=== PATIENT | female | born 1960 | race Caucasian/White ===

== ENCOUNTER 2016-08-13 16:51 | Emergency (ER) | payer MEDICARE, MEDICAID, OTHER ==
[~2016-08-13] VITALS: Ht 182.9 cm; Wt 79.5 kg
[~2016-08-13 16:51] MED LIST: ARIP5TAB13 PO; DULO60CA42 PO; ESTR1PAT64 TD; MEDR2.5T PO; OXYC1CAP21 PO
[2016-08-13 17:06] VITALS: BP 140/73; PULSE 85; RESP 16; O2SAT 99
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
== END 2016-08-13 19:11 | disposition home or self-care (01) ==
LOC: SED 16:51
DX: S05.11XA Contusion of eyeball and orbital tissues, right eye, initial encounter (principal); S22.32XA Fracture of one rib, left side, initial encounter for closed fracture; M54.9 Dorsalgia, unspecified; Y04.0XXA Assault by unarmed brawl or fight, initial encounter; Y93.89 Activity, other specified; Y92.89 Other specified places as the place of occurrence of the external cause; Y99.8 Other external cause status; M79.1 Myalgia; F17.200 Nicotine dependence, unspecified, uncomplicated
CPT/HCPCS: 70450; 70486; 71110; 72072; 96372; 99284; J1885

== ENCOUNTER 2016-08-14 12:45 | Emergency (ER) | payer MEDICARE, MEDICAID ==
[~2016-08-14] VITALS: Ht 172.7 cm; Wt 72.7 kg
[2016-08-14 12:48] VITALS: BP 125/75; PULSE 83; RESP 20; O2SAT 97
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
[2016-08-14] MEDS ORDERED: 0.9% Sodium Chloride Inhalation Solution ONE (13:22)
[2016-08-14] MEDS ORDERED: Fluorescein 0.6 mg Ophthalmic Strip ONE (13:22)
[2016-08-14] MEDS ORDERED: Tetracaine 0.5% 4 mL Ophthalmic Solution ONE (13:23)
[2016-08-14] MEDS ORDERED: Artificial Tears 15 mL Ophthalmic Solution RIGHT_EYE ONE (14:00)
[2016-08-14 14:45] VITALS: BP 125/75; PULSE 83; RESP 20; O2SAT 97
== END 2016-08-14 14:50 | disposition home or self-care (01) ==
LOC: SED 12:45
DX: G43.909 Migraine, unspecified, not intractable, without status migrainosus (principal); H11.31 Conjunctival hemorrhage, right eye; F17.200 Nicotine dependence, unspecified, uncomplicated; Z88.1 Allergy status to other antibiotic agents; Z88.5 Allergy status to narcotic agent; Z88.8 Allergy status to other drugs, medicaments and biological substances; Z79.899 Other long term (current) drug therapy